=== PATIENT | female | born 1985 | race Caucasian/White ===

== ENCOUNTER 2016-03-16 08:25 | Emergency (ER) | payer OTHER ==
--- NOTE | 2016-03-16 10:41 | ED NURSING NOTES ---
Clinical Report - Nurses [facility] [address] [place] [address] 03/16/2016 8:26 Patient: SEBASTIEN CHOI *This is a preliminary document and is subject to change TRIAGE Triage time 09:Mar 16 2016. Acuity: LEVEL 4. Chief Complaint: FALL 2-3 FEET DOWN 4 STAIRS while standing, onto a wood surface and hard surface and landed on their back; tripped (off back porch). 09:35 03/16/16. 09:31 03/16/16. SEPSIS SCREEN: Sepsis Screen. Negative (no infection suspected/documented). GALO COMA SCORE: Galo Coma Scale: 15- eyes open spontaneously (4); best verbal response- oriented x 4 (5); best motor response- obeys commands (6). --09:35 Kimberly Hill R.N. 09:22 03/16/16. BP: 122/84 (regular adult cuff) taken on the left arm, while sitting. HR: 86. RR: 18. O2 saturation: 100% on room air. Temp: 98.6 F (oral). Pain level now: 11/15. --09:35 Kimberly Hill R.N. Weight: 81.6 kg stated. Height/Length: 64 inches Per Patient. BMI: 30.9. --09:35 Kimberly Hill R.N. Medications Wellbutrin XL Oral 100mg, bid. --09:28 Kimberly Hill R.N. TraMADol HCl ER (Biphasic) Oral 50mg. --09:28 Kimberly Hill R.N. Amitriptyline HCl Oral (Tablet 150 mg) 1 tablet, at bedtime. --09:28 Kimberly Hill R.N. TraZODone HCl Oral (Tablet 150 mg) 1 tablet, at bedtime. --09:28 Kimberly Hill R.N. Methocarbamol Oral (Tablet 750 mg) 2 tablets, 3x a day. --09:29 Kimberly Hill R.N. Allergies Ceclor. --09:29 Kimberly Hill R.N. History Arrived by private vehicle. Historian: patient. Accompanied by family and sister. Primary physician (Celio Red MD). 09:31 03/16/16. Location of injuries: lower back. Occurred at home. ( Fall on Monday of last week off back stairs outside, dog tangled patients feet and she fell four stairs and hit lower lumbar middle of back). 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 Recently seen in a medical facility; treatment- pain medication. (Patients doctor prescribed Tramadol but this is not working). PAST MEDICAL HX: Tetanus status: up-to-date. Immunizations: up-to-date. SOCIAL HX: Unknown if ever smoked. Occasional alcohol use. No infectious disease exposure. FALL RISK ASSESSMENT: Fall risk assessment completed. No fall risk identified. NUTRITIONAL RISK ASSESSMENT: The nutritional risk assessment revealed no deficiencies. FUNCTIONAL ASSESSMENT: Functional assessment: no impairments noted. LEARNING NEEDS ASSESSMENT: The learning needs assessment revealed no barriers. SKIN INTEGRITY ASSESSMENT: Skin integrity risk assessment completed. No skin integrity risk identified. --09:35 Kimberly Hill R.N. PROBLEMS: URI. Recent Travel. Cellulitis. Tension-Type Headache. Chronic Headache. Migraine Headache. Dental Abscess. Dental Caries. Hypertension. Immunizations. ADHD - Attention Deficit Hyperactivity Disorder. ADD - Attention Deficit Disorder. Insomnia. Depression. Headache. LNMP - Last Normal Menstrual Period. --09:30 Kimberly Hill R.N. ADDITIONAL SURGERIES: Adenoidectomy. Dental Surgery. Dilatation & Curettage. Tonsillectomy. --09:30 Kimberly Hill R.N. Assessment 09:31 03/16/16. --09:35 Kimberly Hill R.N. Interventions 09:31 03/16/16. ID band on patient. To treatment room. --09:35 Kimberly Hill R.N. PHYSICAL ASSESSMENT 09:38 03/16/16. To room via wheelchair. GENERAL / NEURO / PSYCH: Oriented X 4. RESPIRATORY: Respirations not labored. CVS: Normal heart rate and rhythm. GI / : Abdomen soft. EXTREMITIES: ( Patient unable to lay on back due to pain). SKIN: Skin intact. Skin is warm. BACK: Vertebral point tenderness over the lumbar spine (patient fell a week ago). Soft tissue tenderness in the right mid and left mid lumbar paraspinous region. ( No abrasions or bruising noted but accident happened last Monday and PCP wanted xray then but patient did not get done). --09:38 Kimberly Hill R.N. NURSING PROGRESS NOTES 09:39 03/16/16. The plan of care for this patient has been created. Reassurance given. Two patient identifiers checked. Call light placed in reach. Side rails up x 1. Brakes of bed on. Brakes of chair on. Patient ready for evaluation- chart flagged and PCP notified. --09:39 Kimberly Hill, RJani. 10:24 03/16/2016 Toradol (Ketorolac Tromethamine) IM 60 mg given. Given in the left anterior lateral thigh. Allergies verified and confirmed 5 rights. (Given by Jeffery Harris). --10:25 Jose De Jesus Bundy, RRadhaN. This report is not final
--- NOTE | 2016-03-16 10:41 | ED ORDER SUMMARY ---
..... Patient: SEBASTIEN CHOI OrderSheet [facility] VisitID: [id number] [place] [address] 31y, F Registration Date/Time: 03/16/2016 ORDER SHEET Weight: 81.6 kg (stated) Allergies: Ceclor GENERAL ORDERS: Lumbar Spine 2 or 3V Urgent (09:48 03/16/2016 Bryon ALICEA) (Ack 9:52 Adrien) (10:52 Jose R.NRadha) MEDICATION ORDERS: Toradol IM 60 mg (NOW) (09:48 03/16/2016 Bryon ALICEA) (Ack 10:04 Jose R.NRadha) (10:25 Ochoa Pastor.Joe.) IV FLUIDS: ORDER SHEET NOTES: [Electronically signed by Kimberly Hill R.N. (11:04 03/16/2016)] [Electronically signed by Claude Gonsales MD (12:43 03/17/2016)] [Electronically locked/signed by Kimberly Hill R.N. (11:04 03/16/2016)]
--- NOTE | 2016-03-16 10:41 | ED NURSING NOTES ---
Clinical Report - Nurses [facility] [address] [place] [address] 03/16/2016 8:26 Patient: SEBASTIEN CHOI *This is a preliminary document and is subject to change TRIAGE Triage time 09:Mar 16 2016. Acuity: LEVEL 4. Chief Complaint: FALL 2-3 FEET DOWN 4 STAIRS while standing, onto a wood surface and hard surface and landed on their back; tripped (off back porch). 09:35 03/16/16. 09:31 03/16/16. SEPSIS SCREEN: Sepsis Screen. Negative (no infection suspected/documented). GALO COMA SCORE: Galo Coma Scale: 15- eyes open spontaneously (4); best verbal response- oriented x 4 (5); best motor response- obeys commands (6). --09:35 Kimberly Hill R.N. 09:22 03/16/16. BP: 122/84 (regular adult cuff) taken on the left arm, while sitting. HR: 86. RR: 18. O2 saturation: 100% on room air. Temp: 98.6 F (oral). Pain level now: 11/15. --09:35 Kimberly Hill R.N. Weight: 81.6 kg stated. Height/Length: 64 inches Per Patient. BMI: 30.9. --09:35 Kimberly Hill R.N. Medications Wellbutrin XL Oral 100mg, bid. --09:28 Kimberly Hill R.N. TraMADol HCl ER (Biphasic) Oral 50mg. --09:28 Kimberly Hill R.N. Amitriptyline HCl Oral (Tablet 150 mg) 1 tablet, at bedtime. --09:28 Kimberly Hill R.N. TraZODone HCl Oral (Tablet 150 mg) 1 tablet, at bedtime. --09:28 Kimberly Hill R.N. Methocarbamol Oral (Tablet 750 mg) 2 tablets, 3x a day. --09:29 Kimberly Hill R.N. Allergies Ceclor. --09:29 Kimberly Hill R.N. History Arrived by private vehicle. Historian: patient. Accompanied by family and sister. Primary physician (Celio Red MD). 09:31 03/16/16. Location of injuries: lower back. Occurred at home. ( Fall on Monday of last week off back stairs outside, dog tangled patients feet and she fell four stairs and hit lower lumbar middle of back). 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 Recently seen in a medical facility; treatment- pain medication. (Patients doctor prescribed Tramadol but this is not working). PAST MEDICAL HX: Tetanus status: up-to-date. Immunizations: up-to-date. SOCIAL HX: Unknown if ever smoked. Occasional alcohol use. No infectious disease exposure. FALL RISK ASSESSMENT: Fall risk assessment completed. No fall risk identified. NUTRITIONAL RISK ASSESSMENT: The nutritional risk assessment revealed no deficiencies. FUNCTIONAL ASSESSMENT: Functional assessment: no impairments noted. LEARNING NEEDS ASSESSMENT: The learning needs assessment revealed no barriers. SKIN INTEGRITY ASSESSMENT: Skin integrity risk assessment completed. No skin integrity risk identified. --09:35 Kimberly Hill R.N. PROBLEMS: URI. Recent Travel. Cellulitis. Tension-Type Headache. Chronic Headache. Migraine Headache. Dental Abscess. Dental Caries. Hypertension. Immunizations. ADHD - Attention Deficit Hyperactivity Disorder. ADD - Attention Deficit Disorder. Insomnia. Depression. Headache. LNMP - Last Normal Menstrual Period. --09:30 Kimberly Hill R.N. ADDITIONAL SURGERIES: Adenoidectomy. Dental Surgery. Dilatation & Curettage. Tonsillectomy. --09:30 Kimberly Hill R.N. Assessment 09:31 03/16/16. --09:35 Kimberly Hill R.N. Interventions 09:31 03/16/16. ID band on patient. To treatment room. --09:35 Kimberly Hill R.N. PHYSICAL ASSESSMENT 09:38 03/16/16. To room via wheelchair. GENERAL / NEURO / PSYCH: Oriented X 4. RESPIRATORY: Respirations not labored. CVS: Normal heart rate and rhythm. GI / : Abdomen soft. EXTREMITIES: ( Patient unable to lay on back due to pain). SKIN: Skin intact. Skin is warm. BACK: Vertebral point tenderness over the lumbar spine (patient fell a week ago). Soft tissue tenderness in the right mid and left mid lumbar paraspinous region. ( No abrasions or bruising noted but accident happened last Monday and PCP wanted xray then but patient did not get done). --09:38 Kimberly Hill R.N. NURSING PROGRESS NOTES 09:39 03/16/16. The plan of care for this patient has been created. Reassurance given. Two patient identifiers checked. Call light placed in reach. Side rails up x 1. Brakes of bed on. Brakes of chair on. Patient ready for evaluation- chart flagged and PCP notified. --09:39 Kimberly Hill, RJani. 10:24 03/16/2016 Toradol (Ketorolac Tromethamine) IM 60 mg given. Given in the left anterior lateral thigh. Allergies verified and confirmed 5 rights. (Given by Jeffery Harris). --10:25 Jose De Jesus Bundy, RRadhaN. This report is not final
--- NOTE | 2016-03-16 10:41 | ED ORDER SUMMARY ---
..... Patient: SEBASTIEN CHOI OrderSheet [facility] VisitID: [id number] [place] [address] 31y, F Registration Date/Time: 03/16/2016 ORDER SHEET Weight: 81.6 kg (stated) Allergies: Ceclor GENERAL ORDERS: Lumbar Spine 2 or 3V Urgent (09:48 03/16/2016 Bryon ALICEA) (Ack 9:52 Adrien) (10:52 Jose R.NRadha) MEDICATION ORDERS: Toradol IM 60 mg (NOW) (09:48 03/16/2016 Bryon ALICEA) (Ack 10:04 Jose R.NRadha) (10:25 Ochoa Pastor.Joe.) IV FLUIDS: ORDER SHEET NOTES: [Electronically signed by Kimberly Hill R.N. (11:04 03/16/2016)] [Electronically signed by Claude Gonsales MD (12:43 03/17/2016)] [Electronically locked/signed by Kimberly Hill R.N. (11:04 03/16/2016)]
--- NOTE | 2016-03-16 10:41 | ED CLINICAL REPORT ---
Clinical Report - Physicians/Mid Levels [facility] [address] [place] [address] 03/16/2016 8:26 [id number] Time Seen: 09:44 Mar 16 2016. Arrived- By private vehicle. Historian- patient. HISTORY OF PRESENT ILLNESS Location of injuries- lower back. Chief Complaint: INJURY TO LOWER BACK. 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 ( Location of injuries: lower back. Occurred at home. ( Fall on Monday of last week off back stairs outside, dog tangled patients feet and she fell four stairs and hit lower lumbar middle of back).). Fell (FALL 2-3 FEET DOWN 4 STAIRS while standing, onto a wood surface and hard surface and landed on their back; tripped (off back porch).). The patient complains of moderate pain. No blow to the head, neck pain or loss of consciousness. REVIEW OF SYSTEMS The patient complains of pain on weight bearing. No numbness, dizziness, hearing loss, chest pain or difficulty breathing. No headache, nausea, abdominal pain, laceration or vomiting. Recently seen in a medical facility; treatment- pain medication. (Patients doctor prescribed Tramadol but this is not working). All systems otherwise negative, except as recorded above. PAST HISTORY See nurses notes. URI. Recent Travel. Cellulitis. Tension-Type Headache. Chronic Headache. Migraine Headache. Dental Abscess. Dental Caries. Hypertension. Immunizations. ADHD - Attention Deficit Hyperactivity Disorder. ADD - Attention Deficit Disorder. Insomnia. Depression. Headache. LNMP - Last Normal Menstrual Period. ADDITIONAL SURGERIES: Adenoidectomy. Dental Surgery. Dilatation & Curettage. Tonsillectomy. SOCIAL HISTORY Occasional alcohol use. ADDITIONAL NOTES The nursing notes have been reviewed. PHYSICAL EXAM Vital Signs: 03/16/2016 09:22 BP: 122/84. HR: 86. RR: 18. O2 saturation: 100%. Temp: 98.6 F. Pain level now: 10/10. Appearance: Alert. Patient in mild distress. Head: Head non-tender. No swelling of head. Eyes: Pupils equal, round and reactive to light. EOM intact. ENT: No dental injury. Pharynx normal. Neck: Painless ROM. Non-tender. CVS: Heart sounds normal. Pulses normal. Respiratory: Breath sounds normal. Chest nontender. Abdomen: No visible injury. Soft and nontender. Bowel sounds normal. No mass. Back: Mild soft-tissue tenderness in the right lower and left lower lumbar area. Skin: Skin intact. Skin warm. Normal skin color. Extremities: Normal inspection. Pelvis stable. Extremities atraumatic. No lower extremity edema. Neuro: Oriented X 3. No motor deficit. No sensory deficit. Reflexes normal. LABS, X-RAYS, AND EKG X-Rays: LS spine series negative. PROGRESS AND PROCEDURES Course of Care: patient wants pain medication before x-ray. Toradol 60 mg IM Patient says she got tramadol from her doctor and this is not working for her pain. She claims she couldn't sleep last night due to the pain. In addition she has Soma at home but states that this is not working very well for her either. Patient/family counseled. Disposition: Discharged. Condition: stable. CLINICAL IMPRESSION Fall from stairs and on same level by slipping. Single contusion to the lower back. INSTRUCTIONS Apply moist heat for 15-20 minutes three times a day for five days until better. You may walk and bear weight as tolerated. Your Current Medications: STOP TAKING THE FOLLOWING MEDICATIONS: Methocarbamol Oral : Tablet 750 mg, 2 tablets 3x a day. CONTINUE TAKING THE FOLLOWING MEDICATIONS: Amitriptyline HCl Oral : Tablet 150 mg, 1 tablet at bedtime. TraMADol HCl ER (Biphasic) Oral : 50mg. TraZODone HCl Oral : Tablet 150 mg, 1 tablet at bedtime. Wellbutrin XL Oral : 100mg bid. Prescription Medications: Ibuprofen 600mg tablets: take 1 tablet orally every 8 hours as needed for pain. Dispense thirty (30). No refills. Baclofen 10 mg: take 1/2 tablet orally every 8 hours. Dispense ten (10). No refills. Follow-up: Follow up with your doctor in two days as scheduled. Understanding of the discharge instructions verbalized by patient. (Electronically signed by Claude Gonsales MD 03/17/2016 12:43)
--- NOTE | 2016-03-16 10:41 | ED CLINICAL REPORT ---
Clinical Report - Physicians/Mid Levels [facility] [address] [place] [address] 03/16/2016 8:26 [id number] Time Seen: 09:44 Mar 16 2016. Arrived- By private vehicle. Historian- patient. HISTORY OF PRESENT ILLNESS Location of injuries- lower back. Chief Complaint: INJURY TO LOWER BACK. 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 ( Location of injuries: lower back. Occurred at home. ( Fall on Monday of last week off back stairs outside, dog tangled patients feet and she fell four stairs and hit lower lumbar middle of back).). Fell (FALL 2-3 FEET DOWN 4 STAIRS while standing, onto a wood surface and hard surface and landed on their back; tripped (off back porch).). The patient complains of moderate pain. No blow to the head, neck pain or loss of consciousness. REVIEW OF SYSTEMS The patient complains of pain on weight bearing. No numbness, dizziness, hearing loss, chest pain or difficulty breathing. No headache, nausea, abdominal pain, laceration or vomiting. Recently seen in a medical facility; treatment- pain medication. (Patients doctor prescribed Tramadol but this is not working). All systems otherwise negative, except as recorded above. PAST HISTORY See nurses notes. URI. Recent Travel. Cellulitis. Tension-Type Headache. Chronic Headache. Migraine Headache. Dental Abscess. Dental Caries. Hypertension. Immunizations. ADHD - Attention Deficit Hyperactivity Disorder. ADD - Attention Deficit Disorder. Insomnia. Depression. Headache. LNMP - Last Normal Menstrual Period. ADDITIONAL SURGERIES: Adenoidectomy. Dental Surgery. Dilatation & Curettage. Tonsillectomy. SOCIAL HISTORY Occasional alcohol use. ADDITIONAL NOTES The nursing notes have been reviewed. PHYSICAL EXAM Vital Signs: 03/16/2016 09:22 BP: 122/84. HR: 86. RR: 18. O2 saturation: 100%. Temp: 98.6 F. Pain level now: 10/10. Appearance: Alert. Patient in mild distress. Head: Head non-tender. No swelling of head. Eyes: Pupils equal, round and reactive to light. EOM intact. ENT: No dental injury. Pharynx normal. Neck: Painless ROM. Non-tender. CVS: Heart sounds normal. Pulses normal. Respiratory: Breath sounds normal. Chest nontender. Abdomen: No visible injury. Soft and nontender. Bowel sounds normal. No mass. Back: Mild soft-tissue tenderness in the right lower and left lower lumbar area. Skin: Skin intact. Skin warm. Normal skin color. Extremities: Normal inspection. Pelvis stable. Extremities atraumatic. No lower extremity edema. Neuro: Oriented X 3. No motor deficit. No sensory deficit. Reflexes normal. LABS, X-RAYS, AND EKG X-Rays: LS spine series negative. PROGRESS AND PROCEDURES Course of Care: patient wants pain medication before x-ray. Toradol 60 mg IM Patient says she got tramadol from her doctor and this is not working for her pain. She claims she couldn't sleep last night due to the pain. In addition she has Soma at home but states that this is not working very well for her either. Patient/family counseled. Disposition: Discharged. Condition: stable. CLINICAL IMPRESSION Fall from stairs and on same level by slipping. Single contusion to the lower back. INSTRUCTIONS Apply moist heat for 15-20 minutes three times a day for five days until better. You may walk and bear weight as tolerated. Your Current Medications: STOP TAKING THE FOLLOWING MEDICATIONS: Methocarbamol Oral : Tablet 750 mg, 2 tablets 3x a day. CONTINUE TAKING THE FOLLOWING MEDICATIONS: Amitriptyline HCl Oral : Tablet 150 mg, 1 tablet at bedtime. TraMADol HCl ER (Biphasic) Oral : 50mg. TraZODone HCl Oral : Tablet 150 mg, 1 tablet at bedtime. Wellbutrin XL Oral : 100mg bid. Prescription Medications: Ibuprofen 600mg tablets: take 1 tablet orally every 8 hours as needed for pain. Dispense thirty (30). No refills. Baclofen 10 mg: take 1/2 tablet orally every 8 hours. Dispense ten (10). No refills. Follow-up: Follow up with your doctor in two days as scheduled. Understanding of the discharge instructions verbalized by patient. (Electronically signed by Claude Gonsales MD 03/17/2016 12:43)
--- NOTE | 2016-03-16 11:33 | DIAGNOSTIC IMAGING REPORT ---
PROCEDURE: XR LUMBAR SPINE 2 OR 3 VIEWS INDICATION: TRAUMA/INJURY TECHNIQUE: Three views. COMPARISON: Lumbar spine 02/07/2014 FINDINGS: Osseous structures and disc spaces are normal. No evidence of an acute process or fracture. IMPRESSION: 1. Negative lumbar spine.
--- NOTE | 2016-03-17 12:43 | ED MAR SUMMARY ---
..... Medication Administration Record [facility] [address] [place] [address] Patient: SEBASTIEN CHOI Visit ID: [id number] 31y, F Weight: 81.6 kg Height/Length: 64 in BMI: 30.9 ALLERGIES: Ceclor Given 10:24 03/16/2016 Jose De Jesus Bundy RArie Medication Administered: TORADOL [IM] (KETOROLAC TROMETHAMINE), Dose: 60 mg IM. Medication Ordered: Toradol IM 60 mg (NOW).
--- NOTE | 2016-03-17 12:43 | ED DISCHARGE INSTRUCTIONS ---
Patient: SEBASTIEN CHOI General Instructions [facility] VisitID: [id number] [place] [address] 31y, F Registration Date/Time: 03/16/2016 Fall from stairs and on same level by slipping. Single contusion to the lower back. INSTRUCTIONS Apply moist heat for 15-20 minutes three times a day for five days until better. You may walk and bear weight as tolerated. Your Current Medications: STOP TAKING THE FOLLOWING MEDICATIONS: Methocarbamol Oral : Tablet 750 mg, 2 tablets 3x a day. CONTINUE TAKING THE FOLLOWING MEDICATIONS: Amitriptyline HCl Oral : Tablet 150 mg, 1 tablet at bedtime. TraMADol HCl ER (Biphasic) Oral : 50mg. TraZODone HCl Oral : Tablet 150 mg, 1 tablet at bedtime. Wellbutrin XL Oral : 100mg bid. Prescription Medications: Ibuprofen 600mg tablets: take 1 tablet orally every 8 hours as needed for pain. Dispense thirty (30). No refills. Baclofen 10 mg: take 1/2 tablet orally every 8 hours. Dispense ten (10). No refills. Follow-up: Follow up with your doctor in two days as scheduled. Understanding of the discharge instructions verbalized by patient. ADDITIONAL INFORMATION Mechanical Fall You have had a fall today. It appears that the cause is mechanical. That means that you slipped, tripped or lost your balance. If your fall had been due to fainting or a seizure, further tests would be required. Home Care: Rest today and resume your normal activities when you are feeling back to normal. If you were injured during the fall, follow the advice from your doctor regarding care of your injury. You may use acetaminophen (Tylenol) or ibuprofen (Motrin, Advil) to control pain, unless another pain medicine was prescribed. [NOTE: If you have chronic liver or kidney disease or ever had a stomach ulcer or GI bleeding, talk with your doctor before using these medicines.] Fall Prevention: Was there anything that caused your fall that can be fixed, removed, or replaced? Make your home safe by keeping walkways clear of objects you may trip over. Use non-slip pads under rugs. Do not walk in poorly lit areas. Do not stand on chairs or wobbly ladders. Use caution when reaching overhead or looking upward. This position can cause a loss of balance. Be sure your shoes fit properly, have non-slip bottoms and are in good condition. Be cautious when going up and down curbs, and walking on uneven sidewalks. If your balance is poor, consider using a cane or walker. Stay as active as you can. Balance, flexibility, strength, and endurance all come from exercise. They all play a role in preventing falls. Follow Up with your doctor or as advised by our staff. Get Prompt Medical Attention if any of the following occur: Repeated mechanical falls, or unexplained falls Dizziness, fainting or seizure Severe headache Chest pain or shortness of breath Palpitations (very rapid or very slow or irregular heartbeat) Blood in vomit, stools (black or red color) Weakness of an arm or leg or one side of the face Difficulty with speech or vision You have been given the following additional information: Fall, Mechanical You may walk and bear weight as tolerated. (Electronically signed by Claude Gonsales MD 03/17/2016 12:43)
--- NOTE | 2016-03-17 12:43 | ED MED RECONCILIATION SUMMARY ---
Patient: SEBASTIEN CHOI Medication Reconciliation Report [facility] VisitID: [id number] [place] [address] 31y, F Registration Date/Time: 03/16/2016 Weight: 81.6 kg Height/Length: 64 in. BMI: 30.9 ALLERGIES: Ceclor The patient's Home Medications are listed below: STOP TAKING THE FOLLOWING MEDICATIONS: Methocarbamol Oral (750 mg) 2 tablets, 3x a day CONTINUE TAKING THE FOLLOWING MEDICATIONS: Amitriptyline HCl Oral (150 mg) 1 tablet, at bedtime TraMADol HCl ER (Biphasic) Oral 50mg TraZODone HCl Oral (150 mg) 1 tablet, at bedtime Wellbutrin XL Oral 100mg, bid The source(s) of the original Home Medication information: Not obtained. The following Medications were given to the patient in the Emergency Department: Toradol [IM] IM 60 mg, administered: 03/16/2016 10:24:00 AM The following Medications were prescribed to the patient: Ibuprofen 600mg tablets: take 1 tablet orally every 8 hours as needed for pain. Dispense thirty (30). No refills. -- Claude Gonsales MD Baclofen 10 mg: take 1/2 tablet orally every 8 hours. Dispense ten (10). No refills. -- Claude Gonsales MD
--- NOTE | 2016-03-17 12:43 | ED MAR SUMMARY ---
..... Medication Administration Record [facility] [address] [place] [address] Patient: SEBASTIEN CHOI Visit ID: [id number] 31y, F Weight: 81.6 kg Height/Length: 64 in BMI: 30.9 ALLERGIES: Ceclor Given 10:24 03/16/2016 Jose De Jesus Bundy RArie Medication Administered: TORADOL [IM] (KETOROLAC TROMETHAMINE), Dose: 60 mg IM. Medication Ordered: Toradol IM 60 mg (NOW).
--- NOTE | 2016-03-17 12:43 | ED MED RECONCILIATION SUMMARY ---
Patient: SEBASTIEN CHOI Medication Reconciliation Report [facility] VisitID: [id number] [place] [address] 31y, F Registration Date/Time: 03/16/2016 Weight: 81.6 kg Height/Length: 64 in. BMI: 30.9 ALLERGIES: Ceclor The patient's Home Medications are listed below: STOP TAKING THE FOLLOWING MEDICATIONS: Methocarbamol Oral (750 mg) 2 tablets, 3x a day CONTINUE TAKING THE FOLLOWING MEDICATIONS: Amitriptyline HCl Oral (150 mg) 1 tablet, at bedtime TraMADol HCl ER (Biphasic) Oral 50mg TraZODone HCl Oral (150 mg) 1 tablet, at bedtime Wellbutrin XL Oral 100mg, bid The source(s) of the original Home Medication information: Not obtained. The following Medications were given to the patient in the Emergency Department: Toradol [IM] IM 60 mg, administered: 03/16/2016 10:24:00 AM The following Medications were prescribed to the patient: Ibuprofen 600mg tablets: take 1 tablet orally every 8 hours as needed for pain. Dispense thirty (30). No refills. -- Claude Gonsales MD Baclofen 10 mg: take 1/2 tablet orally every 8 hours. Dispense ten (10). No refills. -- Claude Gonsales MD
== END 2016-03-16 11:00 | disposition home or self-care (01) ==
LOC: ED SRH 08:25
DX: S30.0XXA Contusion of lower back and pelvis, initial encounter (principal); W10.8XXA Fall (on) (from) other stairs and steps, initial encounter; Y92.007 Garden or yard of unspecified non-institutional (private) residence as the place of occurrence of the external cause; Y93.9 Activity, unspecified; Y99.9 Unspecified external cause status; Z79.891 Long term (current) use of opiate analgesic; Z79.899 Other long term (current) drug therapy